=== PATIENT | female | born 1945 | race Caucasian/White ===

== ENCOUNTER 2023-07-21 07:56 | Outpatient (OUT) | payer MEDICARE, SELFPAY ==
--- NOTE | 2023-07-21 08:00 | CA_ITS ---
Patient Name: DAKOTAH CANO MR#: [id number] : 1945 Exam Date: 07/21/2023 Ordering Doctor: DR TODD NGO . ECHOCARDIOGRAM REPORT PROCEDURE: CA ECHO DOPPLER COMPLETE INDICATIONS: Heart murmur, smoker COMPARISON: None. DESCRIPTION: COMPLETE ECHOCARDIOGRAM Real-time transthoracic echocardiography with 2D, M-mode, spectral and color flow Doppler performed. QUALITY: Technical quality was good. 64 , 115#, BSA 1.55, BP 122/80 LEFT VENTRICLE: Normal chamber size. Normal left ventricular wall thickness. Normal systolic function. LV EF: Normal left ventricular ejection fraction, (>55%). DIASTOLIC: Grade 1 diastolic dysfunction. ATRIAL SEPTUM: Visually appears intact. LEFT ATRIUM: Mild chamber dilatation. RIGHT ATRIUM: Normal chamber size. RIGHT VENTRICLE: Normal chamber size. Normal systolic function. TRICUSPID VALVE: Normal mobility and thickness. No stenosis with mild regurgitation. Doppler studies reveal mildly (35-45) elevated right sided pressures. RVSP 40 mmHg MITRAL VALVE: Mildly thickened with normal mobility. No evidence of mitral valve stenosis. Mild mitral annular calcification. Trivial mitral regurgitation. AORTIC VALVE: Normal trileaflet appearance. Mildly calcified aortic valve. Mildly diminished mobility. No evidence of aortic valve stenosis. No aortic regurgitation. AORTIC ROOT: Normal diameter and appearance. PULMONIC VALVE: Normal thickness and mobility. No stenosis. No regurgitation. PERICARDIUM: There is a moderate to large, mostly anterior pericardial effusion. There is inversion of the right atrial free wall which is consistent with elevated intrapericardial pressures. There are some respiratory variations of the mitral and tricuspid inflow that indicate possible early tamponade physiology. IVC: Collapses with inspirations. IVC is normal in size. PLEURA: CONCLUSION: 1. Normal ventricular systolic function. LVEF is estimated at 65%. 2. No significant valvular dysfunction. 3. Mild diastolic dysfunction. 4. Mildly elevated right-sided pressures. 5. Moderate to large mostly anterior pericardial effusion with signs of increased intrapericardial pressure and possible early tamponade physiology. Adult Echocardiography Procedure Report Left Ventricle LVEDD (3.7 - 5.6 cm): 3.80 cm LVESD (2.2 - 4.0 cm): 2.73 cm LVIVS thickness (0.6 - 1.2 cm): 1.04 cm LVPW thickness (0.5 - 1.0 cm): 0.76 cm E - e': 11.80 LVOT Max Gradient: 3.18 mm[Hg], 3.46 mm[Hg] Peak Velocity (LVOT): 0.89 m/s, 0.93 m/s LVOT Diameter 2.11 cm Left Atrium LA Volume Index (2D A2C): 31.94 ml/m2 Left Atrium Systolic Dimension: 2.51 cm Mitral Valve MV E to A Ratio: 0.67 Mitral Valve A-Wave Peak Velocity: 0.81 m/s Mitral Valve E-Wave Peak Velocity: 0.54 m/s Right Ventricle Aorta AO Root Diam: 3.15 cm Aortic Valve AoV Area (Peak Jaspreet): 2.93 cm2, 2.81 cm2 AoV Area (VTI): 3.06 cm2, 2.95 cm2 Peak Velocity(Antegrade Flow): 1.11 m/s Peak Gradient(Antegrade Flow): 4.92 mm[Hg] Mean Velocity(Antegrade Flow): 0.78 m/s Mean Gradient(Antegrade Flow): 2.70 mm[Hg] Velocity Time Integral: 26.15 cm Tricuspid Valve Peak Velocity (Regurgitant Flow): 2.66 m/s, 2.63 m/s, 3.05 m/s Pulmonic Valve Peak Gradient: 4.60 mm[Hg], 3.79 mm[Hg] Right Atrium Right Atrium Systolic Pressure: 21.87 ml, 21.87 ml Dictated by: Ham Bowen M.D. on 07/21/2023 at 15:41 Approved by: Ham Bowen M.D. on 07/21/2023 at 15:54
== END 2023-07-21 07:57 | disposition home or self-care (01) ==
LOC: CARD 07:58
PROVIDERS: PCP Family Medicine; Visit Provider Family Medicine
DX: R01.1 Cardiac murmur, unspecified (principal)
CPT/HCPCS: 93306

== ENCOUNTER 2023-07-24 10:10 | Outpatient (OUT) | payer MEDICARE, SELFPAY ==
[2023-07-24 11:36] LABS: Basophils Percent Auto 0.6 % (0.2-2.0); Eosinophils Absolute Auto 0.1 10^3/uL (0.0-0.7); Eosinophils Percent Auto 0.9 % (0.9-7.0); Hematocrit 41.3 % (36.0-48.0); Hemoglobin 13.4 g/dL (12.0-16.0); Immature Granulocytes Abs Auto 0.01 10^3/uL (0.00-0.03); Immature Granulocytes Pct Auto 0.2 % (0.0-0.5); Lymphocytes Absolute Auto 1.4 10^3/uL (1.2-3.8); Lymphocytes Percent Auto 21.6 % (20.5-60.0); Mean Corpuscular HGB Conc 32.4 g/dL (29.9-35.2); Mean Corpuscular Hemoglobin 31.6 pg (26.7-34.0); Mean Corpuscular Volume 97.4 fL (81.0-99.0); Mean Platelet Volume 11.3 fL (9.5-13.5); Monocytes Absolute Auto 0.6 10^3/uL (0.3-0.8); Monocytes Percent Auto 8.6 % (1.7-12.0); Neutrophils Absolute Auto 4.5 10^3/uL (1.4-6.5); Neutrophils Percent Auto 68.1 % (43.0-75.0); Platelet Count 243 10^3/uL (150-450); Red Blood Count 4.24 10^6/uL (4.20-5.40); Red Cell Distribution Width 14.6 % (11.0-15.0); White Blood Count 6.6 10^3/uL (4.0-11.0)
[2023-07-24 12:25] LABS: Erythrocyte Sedimentation Rate 32 mm/hr (<=30)
[2023-07-24 13:38] LABS: Alanine Aminotransferase 31 U/L (14-59); Albumin Globulin Ratio 0.8; Albumin Level 3.4 g/dL (3.4-5.0); Alkaline Phosphatase 73 U/L (46-116); Anion Gap 12.5; Aspartate Amino Transferase 23 U/L (15-37); BUN Creatinine Ratio 27.1; Bilirubin Total 0.6 mg/dL (0.2-1.0); Calcium 9.5 mg/dL (8.5-10.1); Carbon Dioxide 28.1 mmol/L (21.0-32.0); Chloride 104 mmol/L (98-107); Estimated GFR (African America >60 (>=60); Estimated GFR (Non-African Ame >60 (>=60); Globulin 4.1 g/dL; Glucose 93 mg/dL (74-106); Potassium 3.6 mmol/L (3.5-5.1); Sodium 141 mmol/L (136-145); Total Protein 7.5 g/dL (6.4-8.2)
[2023-07-25 11:11] LABS: C-Reactive Protein, Cardiac 1.02 mg/L (0.00-3.00)
== END 2023-07-24 10:11 | disposition home or self-care (01) ==
LOC: LAB 10:13
PROVIDERS: PCP Family Medicine; Visit Provider Nurse Practitioner
DX: I31.39 Other pericardial effusion (noninflammatory) (principal)
CPT/HCPCS: 36415; 80053; 85025; 85652; 86140

== ENCOUNTER 2024-01-19 12:37 | Inpatient (IN) | payer OTHER, MEDICARE, SELFPAY ==
[2024-01-19] VITALS (59 sets, daily range): BP systolic 76–136; BP diastolic 46–81; PULSE 95–195; TEMP 36.4–36.9; O2SAT 71–100; BMI 19.9; BMI 15.3
--- NOTE | 2024-01-19 12:53 | XR_ITS ---
[address] [address] Patient Name: DAKOTAH CANO MRN: [id number] date: 1945 Sex: F Assigned Patient Location: ED.MAIN Current Patient Location: ER Accession/Order Number: [id number] Exam Date: 01/19/2024 13:42 Report Date: 01/19/2024 14:09 At the request of: JACKI LIANG Procedure: XR chest 1V EXAMINATION: XR chest 1V HISTORY: AMS COMPARISON: No relevant comparison available. FINDINGS: LUNGS: Hyperexpanded lungs with scattered mild interstitial changes, possibly mild infiltrates. Asymmetric greater density filling the right lung apex. VASCULATURE: No increased pulmonary vasculature. PLEURA: No pneumothorax, effusion, or pleural thickening. CARDIAC: Cardiomegaly. Atherosclerotic disease of aortic arch. MEDIASTINUM: No visible mass or adenopathy. BONES: No fracture or visible bone lesion. OTHER: Negative. XR/XR chest 1V IMPRESSION: 1. No convincing acute cardiopulmonary process. 2. Findings favor emphysematous and chronic interstitial changes. Acute infiltrates. Likely. 3. Right apical marked pleural scarring versus mass versus consolidation. Consider follow-up nonemergent CT of chest for further evaluation. 4. Cardiomegaly. Electronically authenticated by: SHELBY EMERY Date: 01/19/2024 14:09
--- NOTE | 2024-01-19 12:53 | ECG_ITS ---
The [facility] Test Date: 2024-01-19 Pat Name: DAKOTAH CANO Department: Room: - Gender: Female Aging Room Operator: : 1945 Requested By: [id number] Order Number: [id number] Reading MD: JENNIFER THAKUR Measurements Intervals [place] Rate: 106 P: 84 ID: 140 QRS: 74 QRSD: 72 T: 76 QT: 318 QTc: 380 Interpretive Statements 1120 Sinus tachycardia 58234 with occasional ventricular premature complexes (Unreliable analysis due to noise) 10093 ST elevation, can't exclude inferolateral injury 6130 Right atrial enlargement 6220 Possible left atrial enlargement 0102 ARTIFACT PRESENT 9150 abnormal ECG Electronically Signed On 01-19-2024 22:41:33 EDT by JENNIFER THAKUR
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
[2024-01-19] MEDS: 0.9 % SODIUM CHLORIDE 1,000 ML 1000 ML IV ×2 (13:14→15:57)
--- NOTE | 2024-01-19 13:16 | ECG_ITS ---
The [facility] Test Date: 2024-01-19 Pat Name: DAKOTAH CANO Department: Room: - Gender: Female Visitor Services Technician: : 1945 Requested By: [id number] Order Number: [id number] Reading MD: JENNIFER THAKUR Measurements Intervals [place] Rate: 178 P: -[id number] PA: -[id number] QRS: 73 QRSD: 100 T: 83 QT: 306 QTc: 400 Interpretive Statements 27077 Atrial fibrillation with rapid ventricular response 3234 Anteroseptal myocardial infarction, age undetermined 9150 abnormal ECG Electronically Signed On 01-19-2024 22:41:57 EDT by JENNIFER THAKUR
[2024-01-19 13:22] LABS: Basophils Percent Auto 0.3 % (0.2-2.0); Hematocrit 41.7 % (36.0-48.0); Hemoglobin 13.7 g/dL (12.0-16.0); Immature Granulocytes Abs Auto 0.08 10^3/uL (0.00-0.03); Immature Granulocytes Pct Auto 0.7 % (0.0-0.5); Lymphocytes Absolute Auto 0.4 10^3/uL (1.2-3.8); Lymphocytes Percent Auto 3.9 % (20.5-60.0); Mean Corpuscular HGB Conc 32.9 g/dL (29.9-35.2); Mean Corpuscular Hemoglobin 32.3 pg (26.7-34.0); Mean Corpuscular Volume 98.3 fL (81.0-99.0); Mean Platelet Volume 11.4 fL (9.5-13.5); Monocytes Absolute Auto 0.6 10^3/uL (0.3-0.8); Monocytes Percent Auto 5.8 % (1.7-12.0); Neutrophils Absolute Auto 9.7 10^3/uL (1.4-6.5); Neutrophils Percent Auto 89.3 % (43.0-75.0); Platelet Count 321 10^3/uL (150-450); Red Blood Count 4.24 10^6/uL (4.20-5.40); White Blood Count 10.9 10^3/uL (4.0-11.0)
[2024-01-19 13:37] LABS: INR 1.25
[2024-01-19 13:39] LABS: Alanine Aminotransferase 121 U/L (14-59); Albumin Globulin Ratio 0.5; Albumin Level 2.4 g/dL (3.4-5.0); Alkaline Phosphatase 109 U/L (46-116); Anion Gap 22.9; Aspartate Amino Transferase 90 U/L (15-37); BUN Creatinine Ratio 38.4; Bilirubin Total 0.7 mg/dL (0.2-1.0); Calcium 9.8 mg/dL (8.5-10.1); Chloride 105 mmol/L (98-107); Estimated GFR (African America 40 (>=60 mL/min/1.73m^2); Estimated GFR (Non-African Ame 33 (>=60 mL/min/1.73m^2); Globulin 4.5 g/dL; Glucose 114 mg/dL (74-106); Potassium 4.9 mmol/L (3.5-5.1); Sodium 140 mmol/L (136-145); Total Protein 6.9 g/dL (6.4-8.2); Troponin I High Sensitivity 23.1 pg/mL (4.0-51.3)
[2024-01-19 13:41] LABS: Ethanol <3 mg/dL; Magnesium 2.6 mg/dL (1.8-2.4)
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
[2024-01-19] MEDS: DILTIAZEM HCL 25 MG/5 ML VIAL 10 MG IV ×2 (14:26→15:37)
[2024-01-19 14:36] LABS: Bilirubin Urine NEGATIVE (NEGATIVE); Blood Urine TRACE-I (NEGATIVE); Color Urine YELLOW (YELLOW); Glucose Urine UA NEGATIVE (NEGATIVE); Ketones Urine 15 mg/dL (NEGATIVE); Leukocyte Esterase Urine SMALL (NEGATIVE); Nitrite Urine NEGATIVE (NEGATIVE); Protein Urine 30 mg/dL (NEG/TRACE); Specific Gravity Urine >=1.030 (1.005-1.025); pH Urine 5.5 (5.0-9.0)
[2024-01-19 14:37] LABS: Urine Microscopic Indicated YES
[2024-01-19] MEDS: dilTIAZem HCL 125 MG in 0.9 % SODIUM CHLORIDE 100 ML IV (14:39)
[2024-01-19 14:49] LABS: Bacteria Urine MODERATE #/HPF (NONE SEEN); Clarity Urine CLOUDY (CLEAR); WBC Urine 20-50 #/HPF (NONE SEEN)
[2024-01-19 14:50] LABS: Cast Seen? SEEN #/LPF (NONE SEEN); Crystals Seen? None Seen #/HPF (None Seen); Hyaline Casts Urine MODERATE; Mucus Urine TRACE (NONE SEEN); Squamous Epithelial Cell Urine FEW #/LPF (NONE/RARE)
[2024-01-19 14:51] LABS: Urine Culture Indicated YES
[2024-01-19 14:53] LABS: Amphetamine Screen Urine NEGATIVE (NEGATIVE); Barbiturates Screen Urine NEGATIVE (NEGATIVE); Benzodiazepines Screen Urine NEGATIVE (NEGATIVE); Buprenorphine Screen Urine NEGATIVE (NEGATIVE); Cannabinoid Screen Urine NEGATIVE (NEGATIVE); Cocaine Screen Urine NEGATIVE (NEGATIVE); Methadone Screen Urine NEGATIVE (NEGATIVE); Methamphetamines Screen Urine NEGATIVE (NEGATIVE); Opiate Screen Urine NEGATIVE (NEGATIVE); Oxycodone Screen Urine NEGATIVE (NEGATIVE); Phencyclidine Screen Urine NEGATIVE (NEGATIVE); Tricyclic Antidepressant Urine NEGATIVE (NEGATIVE)
[2024-01-19 15:09] LABS: TSH W/ REFLEX FT4 1.653 uIU/mL (0.358-3.740)
--- NOTE | 2024-01-19 15:11 | PC.NURSE ---
Phone report given to NUNO Underwood, in ICU before pt comes up.
[2024-01-19] MEDS: CEFTRIAXONE 1,000 MG in 0.9 % SODIUM CHLORIDE 50 ML 100 MG IV (16:00)
--- NOTE | 2024-01-19 16:42 | PM.HP ---
HPI H&P: HPI History of Present Illness Chief complaint: GENERAL WEAKNESS, AMS, A-Fib with RVR Narrative: Patient brought over to ED by EMS for altered mental status and rapid HR. Patient was driving erratically when she was stopped over by the police. She told the police that she was just upset at her so. She seemed confused, and disheveled. Patient has no known hx of Afib and was found to have Afib with RVR. She received IV cardizem bolus in ED and started on cardizem drip. Trauma work up - CTH/CT neck did not reveal any sig finding/injury. Upon my evaluation, patient was calm and comfortable. She was oriented to time/place and person but had poor insight and did make much sense when I tried to converse with her. Her son who lives with her reports that she has not been eating/drinking for 2-3 days and that she has been more confused/weak than her baseline. Patient also reported multiple falls at home but could not give me more information about her falls. She denies any pain currently and appeared comfortable. Opioid HPI Opioid Management Most Recent Pain and Opioid Data: Ur Phencyclidine Scrn Negative (NEGATIVE) 01/19/24 14:07 Review of Systems ROS Narrative Limited ROS due to patient's mental status. [facility] Social History (Updated 01/19/24 @ 16:49 by Shaikh Finn MD) Within the past year, how often did you have a drink containing alcohol: never Score interpretation: A score less than 3 is consistent with normal alcohol consumption. Smoking status: Current every day smoker Non-prescribed substance use: denies use Meds Home Medications and Allergies Allergies Allergy/AdvReac Type Severity Reaction Status Date / Time No Known Drug Allergies Allergy Verified 01/19/24 12:50 Exam Constitutional Vital Signs, click to edit/add: Last Vital Signs Temp 98.5 F 01/19/24 12:41 Pulse 148 H 01/19/24 15:50 Resp 16 01/19/24 15:50 BP 136/69 01/19/24 15:45 Pulse Ox 99 01/19/24 15:01 O2 Del Method Room Air 01/19/24 12:41 Common normals: no apparent distress General appearance: comfortable, disheveled, ill appearing and frail appearing Nutritional appearance: cachectic HENMT Other: Bruise noted over right fronto temporal area. Respiratory Common normals: normal respiratory effort, no use of accessory muscles and clear to auscultation bilaterally Effort & inspection: able to speak in complete sentences Cardio Common normals: S1 normal heart sound and S2 normal heart sound Rate: tachycardic Rhythm: abnormal rhythm Extremity Common normals: normal to inspection and full ROM Neuro Common normals: oriented x3 and moves all extremities Speech: speech normal Gait (neuro): unable to assess gait Other: AAOX 3 but confused speech, poor insight, does appear to have good grasp of why she is in ED. Psych Common normals: denies hallucinations and denies homicidal ideation Appearance: disheveled Attitude: uncooperative and guarded Speech: normal speech Thought process: disorganized and confused Results Labs Labs: Short CBC 01/19/24 Range/Units 13:15 WBC 10.9 (4.0-11.0) 10^3/uL Hgb 13.7 (12.0-16.0) g/dL Hct 41.7 (36.0-48.0) % Plt Count 321 (150-450) 10^3/uL BMP 01/19/24 13:15 Sodium 140 Potassium 4.9 Chloride 105 Carbon Dioxide 17.0 L BUN 58.0 H Creatinine 1.51 H Glucose 114 H Calcium 9.8 Liver Function 01/19/24 Range/Units 13:15 Total Bilirubin 0.7 (0.2-1.0) mg/dL AST 90 H (15-37) U/L ALT 121 H (14-59) U/L Alkaline Phosphatase 109 (46-116) U/L Albumin 2.4 L (3.4-5.0) g/dL Urine 01/19/24 Range/Units 14:07 Urine Color Yellow (YELLOW) Urine Clarity Cloudy A (CLEAR) Urine pH 5.5 (5.0-9.0) Ur Specific Spencer >=1.030 A (1.005-1.025) Urine Protein 30 A (NEG/TRACE) mg/dL Urine Glucose (UA) Negative (NEGATIVE) mg/dL Assessment and Plan Assessment and Plan (1) Atrial fibrillation with RVR: Assessment and Plan: New onset Afib. Started on IV cardizem drip. Added PO Lopressor and IV digoxin. Therapeutic Lovenox for stroke px. Wean off Cardizem as her HR improves gradually. No need for ECHO as recently done in 08/04 TSH - normal, potassium/magnesium normal (2) Altered mental status: Assessment and Plan: No acute finding on CTH. Suspect underlying mental health illness/undiagnosed dementia. Patient not at her baseline mental status, as per her son - she is more weak/confused and not making much sense. Likely due to UTI. On IV rocephin. UDS /ethanol levels - negative. Qualifiers: Altered mental status type: disorientation Qualified Code(s): R41.0 - Disorientation, unspecified (3) UTI (urinary tract infection): Assessment and Plan: Abnormal UA with confusion. On IV rocephin. F/u urine cx. Qualifiers: Urinary tract infection type: acute cystitis Hematuria presence: without hematuria Qualified Code(s): N30.00 - Acute cystitis without hematuria (4) Severe malnutrition: Assessment and Plan: BMI of only 19, appears cachectic with muscle wasting, loss of subcutaneous tissue. Poor PO intake as per son for few days but it seems like she is not getting adequate nutrition for sometime. Dieitician consult. (5) Abnormal chest xray: Assessment and Plan: Possible lung mass, interstitial changes, old scarring. Current smoker. Ordered CT chest for better visualization of lung parenchyma Urinary Catheter Management Urinary Catheter Management Straight: Cath placed during this visit: yes Urethral indwelling: Yes Reason for continuing: measure accurate output Insertion date: 01/19/24 Insertion time: 14:22
--- NOTE | 2024-01-19 16:59 | CT_ITS ---
The [address] [address] Patient Name: DAKOTAH CANO MRN: [id number] date: 1945 Sex: F Assigned Patient Location: ICU Current Patient Location: ICU Accession/Order Number: [id number] Exam Date: 01/19/2024 17:28 Report Date: 01/19/2024 18:56 At the request of: SHAIKH OMAR Procedure: CT chest wo con EXAMINATION: CT chest wo con, 01/19/2024 5:28 PM EDT HISTORY: Abnormal CXR COMPARISON: XR chest 1V Date 01/19/2024 TECHNIQUE: CT scan of the chest was performed without IV contrast. CT dose reduction technique was used, including Automated Exposure Control. FINDINGS: Moderate cardiomegaly seen. Large predominantly posterior pericardial effusion is seen. Coronary arterial calcification is seen. The thoracic aorta is normal in course and caliber. There is no evidence for thoracic aortic aneurysm. Thoracic aortic calcification is seen. Approximately 4.5 x 2.5 cm fluid density is seen anterior to the ascending aorta, in the anterior mediastinum, which appearance can be seen with benign mediastinal cystic structure. Diffuse emphysematous changes are seen. Right apical pleural thickening is seen with large right apical mass measuring approximately 5.5 x 2.2 cm, which demonstrates significantly irregular borders, suspicious for malignancy. Multiple additional smaller nodules are seen in the lungs bilaterally, measuring up to 2 cm and the right lung, as seen in the more inferior right upper lobe, and up to 15 mm in the left lung, as seen along the left major fissure. There is no evidence for pleural effusion or pneumothorax. Multiple small paratracheal and Suspicious lymph nodes are seen which measure up to 1 cm. Multiple right axillary lymph nodes are also seen, which measure up to 15 mm. The visualized upper abdomen appears grossly unremarkable. Mild diffuse bony demineralization is seen. No destructive osseous lesion is seen. CT/CT chest wo con IMPRESSION: Diffuse emphysematous changes are seen. Right apical pleural thickening is seen with large right apical mass measuring approximately 5.5 x 2.2 cm, which demonstrates significantly irregular borders, suspicious for malignancy. Multiple additional smaller nodules are seen in the lungs bilaterally, measuring up to 2 cm and the right lung, as seen in the more inferior right upper lobe, and up to 15 mm in the left lung, as seen along the left major fissure. Moderate cardiomegaly seen. Large predominantly posterior pericardial effusion is seen. Coronary arterial calcification is seen. Approximately 4.5 x 2.5 cm fluid density is seen anterior to the ascending aorta, in the anterior mediastinum, which appearance can be seen with benign mediastinal cystic structure. Electronically authenticated by: MARBIN DAWKINS Date: 01/19/2024 18:56
[2024-01-19] MEDS: DIGOXIN 500 MCG/2 ML AMPUL 125 MCG IV (18:04)
[2024-01-19] MEDS: ENOXAPARIN SODIUM 60 MG/0.6 ML SYRINGE 50 MG SUBQ (18:04)
[2024-01-19] MEDS: METOPROLOL TARTRATE 25 MG TABLET PO (18:05)
[2024-01-19] MEDS: LACTATED RINGER'S SOLUTION 1,000 ML 125 ML IV (18:06)
[2024-01-19] MEDS: OXYCODONE HCL 5 MG TABLET PO (23:06)
[2024-01-20] VITALS (35 sets, daily range): BP systolic 107–128; BP diastolic 57–90; PULSE 78–135; TEMP 36.3–36.8; O2SAT 85–100
[2024-01-20] MEDS: DIGOXIN 500 MCG/2 ML AMPUL 125 MCG IV ×2 (01:56→09:00)
[2024-01-20] MEDS: LACTATED RINGER'S SOLUTION 1,000 ML 125 ML IV ×3 (01:58→17:13)
[2024-01-20 05:46] LABS: Basophils Percent Auto 0.1 % (0.2-2.0); Hematocrit 37.2 % (36.0-48.0); Hemoglobin 12.3 g/dL (12.0-16.0); Immature Granulocytes Abs Auto 0.09 10^3/uL (0.00-0.03); Immature Granulocytes Pct Auto 0.8 % (0.0-0.5); Lymphocytes Absolute Auto 0.7 10^3/uL (1.2-3.8); Lymphocytes Percent Auto 5.9 % (20.5-60.0); Mean Corpuscular HGB Conc 33.1 g/dL (29.9-35.2); Mean Corpuscular Volume 96.9 fL (81.0-99.0); Mean Platelet Volume 11.9 fL (9.5-13.5); Monocytes Absolute Auto 1.2 10^3/uL (0.3-0.8); Monocytes Percent Auto 10.4 % (1.7-12.0); Neutrophils Absolute Auto 9.3 10^3/uL (1.4-6.5); Neutrophils Percent Auto 82.8 % (43.0-75.0); Platelet Count 283 10^3/uL (150-450); Red Blood Count 3.84 10^6/uL (4.20-5.40); Red Cell Distribution Width 14.8 % (11.0-15.0); White Blood Count 11.2 10^3/uL (4.0-11.0)
[2024-01-20 06:05] LABS: Alanine Aminotransferase 121 U/L (14-59); Albumin Globulin Ratio 0.5; Alkaline Phosphatase 103 U/L (46-116); Anion Gap 17.6; Aspartate Amino Transferase 78 U/L (15-37); BUN Creatinine Ratio 47.9; Bilirubin Total 0.5 mg/dL (0.2-1.0); Calcium 8.9 mg/dL (8.5-10.1); Carbon Dioxide 19.4 mmol/L (21.0-32.0); Chloride 106 mmol/L (98-107); Estimated GFR (African America >60 (>=60 mL/min/1.73m^2); Estimated GFR (Non-African Ame 56 (>=60 mL/min/1.73m^2); Globulin 3.9 g/dL; Glucose 79 mg/dL (74-106); Sodium 139 mmol/L (136-145); Total Protein 5.9 g/dL (6.4-8.2)
[2024-01-20] MEDS: METOPROLOL TARTRATE 50 MG TABLET PO ×2 (08:58→21:00)
--- NOTE | 2024-01-20 09:19 | CM.NOTE ---
Rounds made with Dr. Briseno, discussed with pt about CT scan findings and possible dx of lung cancer. Talked with pt also regarding elevated HR and need for cardiac echo. Pt voices she wants to go home today. Dr. Briseno discussed with pt risks of signing out AMA and possible if underlying conditions gone untreated. Pt voices she will stay, Dr. Briseno will update pt's son on findings and no discharge today.
--- NOTE | 2024-01-20 09:23 | CA_ITS ---
Patient Name: DAKOTAH CANO MR#: [id number] : 1945 Exam Date: 01/20/2024 Ordering Doctor: Shaikh Tracy Briseno . ECHOCARDIOGRAM REPORT PROCEDURE: CA ECHO DOPPLER COMPLETE INDICATIONS: Pericardial effusion/tamponade physiology COMPARISON: None. DESCRIPTION: COMPLETE ECHOCARDIOGRAM Real-time transthoracic echocardiography with 2D, M-mode, spectral and color flow Doppler performed. QUALITY: Technical quality was good. LEFT VENTRICLE: Normal chamber size. Mild concentric left ventricular hypertrophy. LV EF: Global left ventricular systolic function is hyperdynamic; visually estimated ejection fraction is 65 to 70%. No regional wall motion abnormalities. DIASTOLIC: Unable to assess diastolic function. ATRIAL SEPTUM: Inadequately seen LEFT ATRIUM: Severe dilatation. RIGHT ATRIUM: Mild dilatation. RIGHT VENTRICLE: Normal chamber size. Normal right ventricular systolic function. TRICUSPID VALVE: Normal mobility and thickness. Moderate regurgitation. Mild pulmonary hypertension. RVSP 44mmHg MITRAL VALVE: Mildly thickened with normal mobility. No evidence of mitral valve stenosis. Mild mitral annular calcification. Mild mitral regurgitation. AORTIC VALVE: Normal trileaflet appearance. Mildly calcified aortic valve. Normal leaflet mobility. No evidence of aortic valve stenosis. AORTIC ROOT: Normal diameter and appearance. PULMONIC VALVE: Normal thickness and mobility. No stenosis. Trivial regurgitation. PERICARDIUM: Large, circumferential pericardial effusion that appears increased in size from previous exam of 07/21/23, measuring 4.0cm at its largest diameter. No significant respiratory variations of the mitral and tricuspid inflows. No convincing signs of chamber compression. IVC: Normal size with no collapse. CONCLUSION: 1. Global left ventricular systolic function is hyperdynamic; visually estimated ejection fraction is 65 to 70% 2. Normal right ventricular size and systolic function 3. Biatrial dilatation 4. Mild increased left ventricular wall thickness 5. Moderate tricuspid regurgitation 6. Mildly elevated right ventricular systolic pressure; RVSP 44 mmHg 7. Mild mitral regurgitation 8. There is a large, circumferential pericardial effusion that appears increased in size from prior study; no convincing signs of chamber compression or Doppler evidence of tamponade physiology - clinical correlation is recommended Adult Echocardiography Procedure Report Left Ventricle LVEDD (3.7 - 5.6 cm): 3.05 cm LVESD (2.2 - 4.0 cm): 2.32 cm LVIVS thickness (0.6 - 1.2 cm): 1.25 cm LVPW thickness (0.5 - 1.0 cm): 1.13 cm LVOT Max Gradient: 1.64 mm[Hg] LVOT Area (cm2): 0.64 m/s Peak Velocity (LVOT): 0.64 m/s Mean Velocity (LVOT): 0.46 m/s LVOT Diameter 1.77 cm Left Ventricular Ejection Fraction: 73.22 % Left Atrium LA Volume Index (2D A2C): 54.73 ml/m2 Left Atrium Systolic Dimension: 3.65 cm Mitral Valve Mitral Valve E-Wave Peak Velocity: 0.81 m/s Right Ventricle RV Internal Diastolic Dimension: 2.80 cm Aorta AO Root Diam: 2.72 cm Ascending Ao Diam: 2.28 cm Aortic Valve AoV Area (Peak Jaspreet): 1.22 cm2, 1.22 cm2 AoV Area (VTI): 1.59 cm2, 1.59 cm2 Peak Velocity(Antegrade Flow): 1.30 m/s Peak Gradient(Antegrade Flow): 6.75 mm[Hg] Mean Velocity(Antegrade Flow): 0.84 m/s Mean Gradient(Antegrade Flow): 3.26 mm[Hg] Velocity Time Integral: 21.99 cm Tricuspid Valve Peak Velocity (Regurgitant Flow): 2.73 m/s, 2.70 m/s, 3.01 m/s, 2.14 m/s, 2.33 m/s Pulmonic Valve Mean Gradient: 2.11 mm[Hg], 2.31 mm[Hg], 1.31 mm[Hg] Mean Velocity: 0.68 m/s, 0.74 m/s, 0.54 m/s Peak Velocity: 0.89 m/s Peak Gradient: 3.84 mm[Hg], 3.51 mm[Hg], 2.21 mm[Hg] Right Atrium Right Atrium Systolic Pressure: 52.88 ml, 52.88 ml Dictated by: Drew Parker M.D. on 01/20/2024 at 15:57 Approved by: Drew Parker M.D. on 01/20/2024 at 16:07
--- NOTE | 2024-01-20 09:31 | PM.IMPN1 ---
Progress Note: A&P Assessment and Plan (1) Atrial fibrillation with RVR: Assessment and Plan: Poorly controlled HR while on cardizem drip. Patient also on IV digoxin. Increase Lopressor to 50 Q12. Was hypotensive in ED with BP in the 80s. Improved now and stable. (2) Altered mental status: Assessment and Plan: Due to UTI. Improved. Still not at her baseline. C/w Rocephin Qualifiers: Altered mental status type: disorientation Qualified Code(s): R41.0 - Disorientation, unspecified (3) UTI (urinary tract infection): Assessment and Plan: F/u urine cx. On IV rocephin Qualifiers: Urinary tract infection type: acute cystitis Hematuria presence: without hematuria Qualified Code(s): N30.00 - Acute cystitis without hematuria (4) Severe malnutrition: Assessment and Plan: Suspect underlying metastatic lung cancer. No pathological diagnosis and previously unknown. Discussed separately. Added ensure/prostat. BMI of only 15, severe muscle wasting/cachexia noted. (5) Lung mass: Assessment and Plan: Apical lung mass, highly suspicious for lung cancer. D/w patient. these findings were also discussed with her son who is her poa (6) Pericardial effusion: Assessment and Plan: Large pericardial effusion noted on CT and ECHO in 08/04 Avoid diuresis. Early tamponade physiology on ECHO in 08/04. Repeat ECHO. Son told me that patient refused to have pericardiocentesis as outpatient. (7) HAMMAD (acute kidney injury): Assessment and Plan: presented with cr of 1.5, normal renal function at baseline. resolved with iv hydration Plan Patient changed to inpatient as she was hypotensive with Afib with RVR, her HR is still poorly controlled while on cardizem drip after initial period of observation and treatment. She also has pericardial effusion associated with Lung mass and early tamponade physiology based on previous ECHO. She needs close hemodynamic monitoring, cardiology evaluation and is at high risk of poor prognosis, clinical outcome if not treated appropriately and promptly. Internal Medicine - PN: Subj Subjective Interval history: Seen and examined. Patient was hypotensive overnight with BP in the 80s. Now better. However, his HR is still poorly controlled and on average >130. Asymptomatic. Looks more awake and alert and not as confused as she was yesterday Exam Constitutional Vital Signs, click to edit/add: Last Vital Signs Temp 97.7 F 01/19/24 23:40 Pulse 135 H 01/20/24 09:00 Resp 25 H 01/20/24 09:00 BP 128/90 01/20/24 07:59 Pulse Ox 96 01/20/24 08:50 O2 Del Method Room Air 01/20/24 03:07 Common normals: no apparent distress General appearance: comfortable, disheveled and frail appearing Nutritional appearance: cachectic HENMT Other: Bruise noted over right fronto temporal area. Respiratory Common normals: normal respiratory effort, no use of accessory muscles and clear to auscultation bilaterally Effort & inspection: able to speak in complete sentences Cardio Common normals: S1 normal heart sound and S2 normal heart sound Rate: tachycardic Rhythm: abnormal rhythm Extremity Common normals: normal to inspection and full ROM Neuro Common normals: oriented x3, moves all extremities and no focal motor deficits Speech: speech normal Gait (neuro): unable to assess gait Other: AAOX 3 Poor insight. But not as confused as she was before. Psych Common normals: denies hallucinations and denies homicidal ideation Appearance: disheveled Attitude: guarded Speech: normal speech Insight: poor Internal Medicine - PN: Obj Da Labs Labs: Laboratory Results - last 24 hr 01/19/24 01/19/24 01/20/24 13:15 14:07 05:34 WBC 10.9 11.2 H RBC 4.24 3.84 L Hgb 13.7 12.3 Hct 41.7 37.2 MCV 98.3 96.9 MCH 32.3 32.0 MCHC 32.9 33.1 RDW 15.0 14.8 Plt Count 321 283 MPV 11.4 11.9 Neut % (Auto) 89.3 H 82.8 H Lymph % (Auto) 3.9 L 5.9 L Collier % (Auto) 5.8 10.4 Eos % (Auto) 0.0 L 0.0 L Baso % (Auto) 0.3 0.1 L Neut # (Auto) 9.7 H 9.3 H Lymph # (Auto) 0.4 L 0.7 L Collier # (Auto) 0.6 1.2 H Eos # (Auto) 0.0 0.0 Baso # (Auto) 0.0 0.0 Abs Immat Gran (auto) 0.08 H 0.09 H Imm/Tot Granulo (auto) 0.7 H 0.8 H PT 13.0 H INR 1.25 APTT 26.0 Sodium 140 139 Potassium 4.9 4.0 Chloride 105 106 Carbon Dioxide 17.0 L 19.4 L Anion Gap 22.9 17.6 BUN 58.0 H 46.0 H Creatinine 1.51 H 0.96 Est GFR ( Amer) 40 L >60 Est GFR (Non-Af Amer) 33 L 56 L BUN/Creatinine Ratio 38.4 47.9 Glucose 114 H 79 Calcium 9.8 8.9 Magnesium 2.6 H Total Bilirubin 0.7 0.5 AST 90 H 78 H ALT 121 H 121 H Alkaline Phosphatase 109 103 Troponin I High Sens 23.1 Total Protein 6.9 5.9 L Albumin 2.4 L 2.0 L Globulin 4.5 3.9 Albumin/Globulin Ratio 0.5 0.5 TSH & Free T4 Interp 1.653 Urine Color Yellow Urine Clarity Cloudy A Urine pH 5.5 Ur Specific [place] >=1.030 A Urine Protein 30 A Urine Glucose (UA) Negative Urine Ketones 15 A Urine Occult Blood Trace-i Urine Nitrite Negative Urine Bilirubin Negative Urine Urobilinogen 1.0 Ur Leukocyte Esterase Small A Urine RBC 2-5 A Urine WBC 20-50 A Ur Squamous Epith Cells Few A Urine Crystals None seen Urine Bacteria Moderate A Urine Casts Seen A Hyaline Casts Moderate Urine Mucus Trace A Ur Culture Indicated? Yes Urine Opiates Screen Negative Ur Buprenorphine Scrn Negative Ur Oxycodone Screen Negative Urine Methadone Screen Negative Ur Barbiturates Screen Negative U Tricyclic Antidepress Negative Ur Phencyclidine Scrn Negative Ur Amphetamines Screen Negative U Methamphetamines Scrn Negative U Benzodiazepines Scrn Negative Urine Cocaine Screen Negative U Cannabinoids Screen Negative Ethanol Quant <3 Urinary Catheter Management Urinary Catheter Management Straight: Cath placed during this visit: yes Urethral indwelling: Yes Reason for continuing: measure accurate output Insertion date: 01/19/24 Insertion time: 14:22
[2024-01-20] MEDS: dilTIAZem HCL 125 MG in 0.9 % SODIUM CHLORIDE 100 ML 10 MG IV (10:40)
--- NOTE | 2024-01-20 12:13 | SWNOTE1 ---
Pt has confusion. SW did see that OT recommended HH. SW called pt's son, Wilfredo, and left a message. Pt is still driving.
--- NOTE | 2024-01-20 13:43 | SWNOTE1 ---
Pt's son Wilfredo called SW back. SW completed assessment with him. Pt lives at home by herself in an apartment. Pt's son lives about 10 minutes away. Pt does not use any DME at home. Pt's son stated he is going to taker her keys no matter what.
--- NOTE | 2024-01-20 13:47 | SWNOTE1 ---
Continued from previous note: SW spoke with pt's son about the possibility of having home health come in for a short time to assess her, therapy and nurse. Pt's son does feel this would be a good idea. He does not have a preference on the company at this time and is alright with SW picking one. SW to send referral to home [facility].
--- NOTE | 2024-01-20 13:49 | SWNOTE1 ---
SW called [facility] (since they have hospice services as well if ever needed), but they are not in network. SW to send referral to [facility] since they have new hospice services that should be starting soon. Referral sent to [facility]. Referral included face sheet, ED note, H&P, provider notes, case management report, and PT/OT notes.
--- NOTE | 2024-01-20 13:55 | SWNOTE1 ---
Important Message from [employer] reviewed and discussed with patient's son Wilfredo Croft over the phone. Pt. verbalized understanding and had no further questions. packing line worker signed with permission from son, Wilfredo. Original place in pt's room and copy placed in patient?s chart.
--- NOTE | 2024-01-20 14:39 | SWNOTE1 ---
SW received call from [facility] and they are not able to accept. SW to send referral to [address]
--- NOTE | 2024-01-20 15:08 | SWNOTE1 ---
[facility] has accepted patient.
--- NOTE | 2024-01-20 15:11 | SWNOTE1 ---
[facility] also stated they will start care on ThursdayJan 21 if pt discharges tomorrow, if no discharge tomorrow SW to call [facility].
[2024-01-20] MEDS: CEFTRIAXONE 1,000 MG in 0.9 % SODIUM CHLORIDE 50 ML 100 MG IV (16:05)
[2024-01-20] MEDS: ENOXAPARIN SODIUM 60 MG/0.6 ML SYRINGE 50 MG SUBQ (17:13)
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
[2024-01-20] MEDS: PROSTAT 15 GM PROTEIN/100 CAL 30 ML LIQUID PACKET PO (20:25)
[2024-01-20] MEDS: OXYCODONE HCL 5 MG TABLET PO (21:00)
--- NOTE | 2024-01-20 22:18 | RESP.RT ---
Sp02 on room air 85%, placed pt on 3L nasal cannula and Spo2 increased to 91%.
[2024-01-21] VITALS (58 sets, daily range): BP systolic 109–140; BP diastolic 64–89; PULSE 53–140; TEMP 36.3–37.1; O2SAT 90–95; BMI 15.3
[2024-01-21] MEDS: LACTATED RINGER'S SOLUTION 1,000 ML 125 ML IV ×2 (00:45→09:28)
[2024-01-21 06:27] LABS: Alanine Aminotransferase 107 U/L (14-59); Albumin Globulin Ratio 0.5; Albumin Level 1.8 g/dL (3.4-5.0); Alkaline Phosphatase 112 U/L (46-116); Anion Gap 14.2; Aspartate Amino Transferase 57 U/L (15-37); BUN Creatinine Ratio 37.1; Bilirubin Total 0.4 mg/dL (0.2-1.0); Calcium 8.8 mg/dL (8.5-10.1); Carbon Dioxide 20.6 mmol/L (21.0-32.0); Chloride 105 mmol/L (98-107); Estimated GFR (African America >60 (>=60 mL/min/1.73m^2); Estimated GFR (Non-African Ame >60 (>=60 mL/min/1.73m^2); Glucose 85 mg/dL (74-106); Potassium 3.8 mmol/L (3.5-5.1); Sodium 136 mmol/L (136-145); Total Protein 5.8 g/dL (6.4-8.2)
[2024-01-21 06:28] LABS: Hematocrit 37.2 % (36.0-48.0); Hemoglobin 12.4 g/dL (12.0-16.0); Mean Corpuscular HGB Conc 33.3 g/dL (29.9-35.2); Mean Corpuscular Hemoglobin 32.1 pg (26.7-34.0); Mean Corpuscular Volume 96.4 fL (81.0-99.0); Mean Platelet Volume 11.1 fL (9.5-13.5); Platelet Count 270 10^3/uL (150-450); Red Blood Count 3.86 10^6/uL (4.20-5.40); White Blood Count 9.2 10^3/uL (4.0-11.0)
[2024-01-21 06:29] LABS: Atypical Lymphocytes Abs Man 0.18; Hypochromasia 3+; Lymphocytes Absolute Manual 0.27 10^3/uL (1.20-3.80); Monocytes Absolute Manual 0.64 10^3/uL (0.30-0.80); Segmented Neut Absolute Manual 8.09 10^3/uL (1.4-6.5)
[2024-01-21] MEDS: METOPROLOL TARTRATE 50 MG TABLET PO ×2 (08:01→10:55)
--- NOTE | 2024-01-21 10:04 | CM.NOTE ---
Rounds made with Dr. Briseno. Dr. Briseno discussed cardiology's recommendation of being transferred for treatment of pericardial effusion. Victoria was refusing to be transferred. Dr Briseno discussed the potential for if pericardial effusion is not treated. Dr. Briseno also discussed code status with patient and if wanted CPR or intubated if necessary. Dr. Briseno asked Victoria to explain to him what she had just been told by him. Victoria had difficulty putting into words what Dr. Briseno discussed and Dr Briseno was not certain she was fully comprehending what he was saying. Dr Briseno decided he would discuss situation further with the son who is POA. Dr. Briseno spoke to son, Wilfredo and decision was made to get a Hospice consult. Potential for discharge after hospice consult.
--- NOTE | 2024-01-21 10:25 | SWNOTE1 ---
SW spoke to case management and doctor spoke to the son and they would like to pursue hospice. SW called the son, Shade, and he would like to use [facility]. SW to send referral.
--- NOTE | 2024-01-21 10:41 | SWNOTE1 ---
Referral sent to [facility]. Referral included face sheet, ED note, H&P, provider notes, case management report, wound consult, nursing notes, diagnostic imaging, med list, DNR Oorder, and Hospice order.
--- NOTE | 2024-01-21 13:11 | SWNOTE1 ---
SW called [facility] intake. They stated there coorinator spoke to son and he wanted them to call back around 3:30/4. SW expressed to intake that we need someone to come and assess pt as she is being discharged today and then they can coordinate with son after the assessment. Lucinda in intake stated she will reach out and call me back with time.
--- NOTE | 2024-01-21 14:49 | PC.NURSE ---
report called to [facility] on [facility]. pt transported to [facility] with belongings.
--- NOTE | 2024-01-21 15:35 | SWNOTE1 ---
ERNESTO was able to speak to Amira from [facility] and they will be coming to the hospital around 5-5:30 to complete assessment. ERNESTO did advise [facility] that pt will potentially still be discharged after. ERNESTO called pt's son Shade to confirm he will be here while Hospice is here and he stated yes. ERNESTO also advised son that pt may still be discharged this evening, he voiced understanding. ERNESTO updated nurse and Dr. Briseno. ERNESTO left packet of information at med/surge desk for [facility].
[2024-01-21] MEDS: CEFTRIAXONE 1,000 MG in 0.9 % SODIUM CHLORIDE 50 ML 100 MG IV (16:38)
--- NOTE | 2024-01-21 17:52 | PM.IMPN1 ---
Progress Note: A&P Assessment and Plan (1) Atrial fibrillation with RVR: Assessment and Plan: Off of Cardizem drip. Increased Lopressor to 100 q12. Stop Lovenox as patient is now enrolled in hospice. (2) Altered mental status: Assessment and Plan: Due to UTI. Improved. Still not at her baseline. C/w Rocephin Qualifiers: Altered mental status type: disorientation Qualified Code(s): R41.0 - Disorientation, unspecified (3) UTI (urinary tract infection): Assessment and Plan: F/u urine cx. On IV rocephin Qualifiers: Hematuria presence: without hematuria Urinary tract infection type: acute cystitis Qualified Code(s): N30.00 - Acute cystitis without hematuria (4) Severe malnutrition: Assessment and Plan: Suspect underlying metastatic lung cancer vs relapse of B cell lymphoma. Added ensure/prostat. BMI of only 15, severe muscle wasting/cachexia noted. (5) Lung mass: Assessment and Plan: Apical lung mass, highly suspicious for lung cancer vs b cell lymphoma. D/w patient. these findings were also discussed with her son who is her POA (6) Pericardial effusion: Assessment and Plan: Large pericardial effusion noted on CT and ECHO in 08/04 Avoid diuresis. Early tamponade physiology on ECHO in 08/04. Repeat ECHO - shows increase in the size of pericardial effusion Son told me that patient refused to have pericardiocentesis as outpatient. Patient is refusing to have any invasive procedures. (7) HAMMAD (acute kidney injury): Assessment and Plan: presented with cr of 1.5, normal renal function at baseline. resolved with iv hydration Internal Medicine - PN: Subj Subjective Interval history: Seen and examined. Off of Cardizem drip. HR is poorly controlled and persistently above 120. Exam Constitutional Vital Signs, click to edit/add: Last Vital Signs Temp 97.4 F L 01/21/24 15:30 Pulse 126 H 01/21/24 15:51 Resp 15 01/21/24 14:08 BP 140/79 01/21/24 15:30 Pulse Ox 92 L 01/21/24 15:30 O2 Del Method Room Air 01/21/24 15:30 O2 Flow Rate 3 01/21/24 04:30 Common normals: no apparent distress General appearance: comfortable, disheveled and frail appearing Nutritional appearance: cachectic HENMT Other: Bruise noted over right fronto temporal area. Respiratory Common normals: normal respiratory effort, no use of accessory muscles and clear to auscultation bilaterally Effort & inspection: able to speak in complete sentences Cardio Common normals: S1 normal heart sound and S2 normal heart sound Rate: tachycardic Rhythm: abnormal rhythm Extremity Common normals: normal to inspection and full ROM Neuro Common normals: oriented x3, moves all extremities and no focal motor deficits Speech: speech normal Gait (neuro): unable to assess gait Other: AAOX 3 Poor insight. Patient has poor understanding of her medical condition. She does not seem to have medical competency in my opinion as she was unable to communicate/grasp the basic concepts of her current illness. Psych Common normals: denies hallucinations and denies homicidal ideation Appearance: disheveled Attitude: guarded Speech: normal speech Insight: poor Judgement: poor Internal Medicine - PN: Obj Da Labs Labs: Laboratory Results - last 24 hr 01/21/24 05:29 WBC 9.2 RBC 3.86 L Hgb 12.4 Hct 37.2 MCV 96.4 MCH 32.1 MCHC 33.3 RDW 15.0 Plt Count 270 MPV 11.1 Seg Neuts % (Manual) 88.0 H Lymphocytes % (Manual) 3.0 L Atypical Lymphs % (Man) 2.0 Monocytes % (Manual) 7.0 Eosinophils % (Manual) 0.0 L Basophils % (Manual) 0.0 L Neutrophils # (Manual) 8.09 H Lymphocytes # (Manual) 0.27 L Abs Atypical Lymphs Man 0.18 Monocytes # (Manual) 0.64 Eosinophils # (Manual) 0.00 Basophils # (Manual) 0.00 Hypochromasia 3+ Sodium 136 Potassium 3.8 Chloride 105 Carbon Dioxide 20.6 L Anion Gap 14.2 BUN 26.0 H Creatinine 0.70 Est GFR ( Amer) >60 Est GFR (Non-Af Amer) >60 BUN/Creatinine Ratio 37.1 Glucose 85 Calcium 8.8 Total Bilirubin 0.4 AST 57 H ALT 107 H Alkaline Phosphatase 112 Total Protein 5.8 L Albumin 1.8 L Globulin 4.0 Albumin/Globulin Ratio 0.5 Urinary Catheter Management Urinary Catheter Management Straight: Cath placed during this visit: yes Urethral indwelling: Yes Reason for continuing: not indwelling catheter Insertion date: 01/19/24 Insertion time: 14:22
--- NOTE | 2024-01-21 17:52 | W.ACP ---
Advance Care Planning Advance Care Planning Discussion Does patient have a terminal or chronic,progressive disease such that prognosis is less than 6 months: Yes Advance care planning discussion participants: patient and patient surrogate decision maker (Son) Advance care planning discussion summary: 78 y o female who presented with Afib with RVR, metabolic encephalopathy sec to UTI has metastatic malignancy likely lung cancer vs B cell lymphoma with large pericardial effusion. Patient has poor insight, she is confused and in my opinion she does not have the capacity to make informed decisions. She did however, told me that she did not want CPR and that she does not want any invasive procedures. I spoke with her son on 2 occasions via phone. Explained the current medical condition of his mom, her prognosis, and that without treatment of pericardial effusion, metastatic cancer, she is not expected to have life expectancy beyond 6 months. When inquired about her wishes, he told me that she did not want to have any aggressive measures/invasive procedures. Goal of care were discussed with both the patient and her son. Hospice/palliative care was explained. Their questions were answered in detail. Son agrees to hospice evaluation and consult. Patient code status changed to DNR CC after discussion with son and the patient herself. Physician Time Time Spent Time Spent: More than 15 minutes spent with family (Approx 18 minutes spent on advance care planning. )
--- NOTE | 2024-01-21 17:58 | NUTR.NU ---
Diet consult and nutrition assessment completed.
[2024-01-21] MEDS: ALPRAZOLAM 0.5 MG TABLET PO (22:14)
[2024-01-21] MEDS: METOPROLOL TARTRATE 100 MG TABLET PO (22:14)
[2024-01-22] VITALS (9 sets, daily range): BP systolic 80–128; BP diastolic 48–65; PULSE 60–90; TEMP 36.2–36.6; O2SAT 90–95
[2024-01-22 06:04] LABS: Basophils Absolute Auto 0.1 10^3/uL (0.0-0.1); Basophils Percent Auto 0.5 % (0.2-2.0); Hematocrit 47.4 % (36.0-48.0); Hemoglobin 15.7 g/dL (12.0-16.0); Immature Granulocytes Abs Auto 0.18 10^3/uL (0.00-0.03); Immature Granulocytes Pct Auto 1.5 % (0.0-0.5); Lymphocytes Absolute Auto 0.9 10^3/uL (1.2-3.8); Lymphocytes Percent Auto 7.1 % (20.5-60.0); Mean Corpuscular HGB Conc 33.1 g/dL (29.9-35.2); Mean Corpuscular Hemoglobin 31.8 pg (26.7-34.0); Monocytes Percent Auto 8.3 % (1.7-12.0); Neutrophils Absolute Auto 9.9 10^3/uL (1.4-6.5); Neutrophils Percent Auto 82.6 % (43.0-75.0); Platelet Count 329 10^3/uL (150-450); Red Blood Count 4.94 10^6/uL (4.20-5.40); Red Cell Distribution Width 15.1 % (11.0-15.0)
[2024-01-22 06:26] LABS: Alanine Aminotransferase 235 U/L (14-59); Albumin Globulin Ratio 0.5; Alkaline Phosphatase 233 U/L (46-116); Anion Gap 19.3; Aspartate Amino Transferase 175 U/L (15-37); BUN Creatinine Ratio 42.3; Bilirubin Total 0.5 mg/dL (0.2-1.0); Calcium 9.2 mg/dL (8.5-10.1); Carbon Dioxide 17.2 mmol/L (21.0-32.0); Chloride 104 mmol/L (98-107); Estimated GFR (African America >60 (>=60 mL/min/1.73m^2); Estimated GFR (Non-African Ame 51 (>=60 mL/min/1.73m^2); Globulin 4.4 g/dL; Glucose 94 mg/dL (74-106); Potassium 4.5 mmol/L (3.5-5.1); Sodium 136 mmol/L (136-145); Total Protein 6.4 g/dL (6.4-8.2)
--- NOTE | 2024-01-22 08:41 | SWNOTE1 ---
SW checked chart and [facility] did leave note. Note stated that family needs to figure out discharge plans as they thought hospice would be in the home 03/11. It also stated family refused IPU. ERNESTO called pt's son, Shade. Shade voiced that she can't go home as that is not his mom in there, she has no idea what is going on and appears confused (per son). SW did ask son if hospice spoke to him about the IPU? He stated she spoke about it but then not sure what happened after that. SW did tell him usually pt has to have symptoms out of control and SW is not sure she qualifies. Pt's son would like this option if she qualifies. SW to check back with hospice. SW explained to son that it is likely pt will be discharged today as she is stable for discharge. SW explained to pt's son that the other options are for son to take pt home or we could try alf, but she would have to apply for Medicaid. Pt's son did voice that she does not own anything and will qualify for Medicaid. He did tell SW that pt did try to live with him for a little bit. He voiced it is a 2 story home, the basement is the main entry and then there are 14 steps to go to the main floor. He voiced that she can't go up the steps and there is no bathroom in the basement. He stated she can go all the way around the house and go in the front door and not have to do the steps, but she can't walk that far either. SW advised pt's son that once pt is in the home she likely won't be getting around that much. He stated there is not much room in the house. SW advised they can put a hospital bed on the main floor and a bedside commode. Pt's son is not sure on this. ERNESTO let the son know SW to call [facility] and speak with them about the inpt unit and then we will go from there. Pt's son is interested and getting Medicaid application. He will be coming to the hospital. ERNESTO printed off Medicaid application for son. ERNESTO called [facility] and spoke to intake, ERNESTO requested that dispatch or nurse call SW so we can have pt evaluated for the inpatient unit. Waiting for call back.
--- NOTE | 2024-01-22 09:21 | SWNOTE1 ---
SW spoke to dispatch at [facility] and they are coming between 10;00-10:30 to re-assess. SW updated nurse and doctor.
--- NOTE | 2024-01-22 09:38 | CM.NOTE ---
Rounds made with Dr. Briseno, pt will discharge today. Hospice will re-evaluate pt today for possible inpatient care for hospice.
--- NOTE | 2024-01-22 10:22 | SWNOTE1 ---
ERNESTO spoke to Juliano arnold in regards to pt. She is unsure if pt qualifies for IPU, but she is going to reach out to the doctors at IPU and see what they say, then speak to the son. ERNESTO advised her to call SW when she needs SW assistance.
--- NOTE | 2024-01-22 11:24 | SWNOTE1 ---
ERNESTO called over to Radha at [facility], she was not in and SW spoke to Katya. SW explained the situation, they will review. They did ask if pt is able to be skilled? ERNESTO is not sure as pt is more hospice appropriate, but they will review and let SW know.
--- NOTE | 2024-01-22 11:25 | CM.NOTE ---
2nd Important Notice of Medicare discussed again with pt and son, no questions or concerns at this time.
--- NOTE | 2024-01-22 12:42 | SWNOTE1 ---
SW has email out to [facility] as well to see if they have any openings.
--- NOTE | 2024-01-22 13:02 | SWNOTE1 ---
ERNESTO heard back from [place], spoke to Fidelina. She voiced they can not take her at this time pending medicaid. Family would have to fill out a form and business office would have to review and then go from there. This would not happen until at least Thursday. ERNESTO requested to at least send referral over for them to review medically and then if pt returns home, family can call and follow up. Fidelina in agreement.
--- NOTE | 2024-01-22 13:07 | SWNOTE1 ---
SW reached out to [facility], waiting for call back.
--- NOTE | 2024-01-22 13:53 | P.DS_ITS ---
DS: Providers Provider Date of admission: 01/20/24 09:30 Primary care physician: TODD NGO Admitting clinician: Shaikh Finn Attending physician on admission: Shaikh Finn Consults: 01/19/24 14:38 Occupational Therapy Eval and Treat Routine Reason for consultation: Ambulatory dysfunction/weakness Physical Therapy Eval and Treat Routine Reason for consultation: Ambulatory dysfunction/weakness 01/20/24 09:35 Consult to Dietitian Routine Reason for consultation: malnutrition 01/20/24 09:41 Consult to Cardiology Routine Reason for consultation: Afib with RVR, Pericardial effusion/tamponade physiology. 01/21/24 10:04 Consult to Hospice Routine Reason for consultation: Lung mass/cancer/pericardial effusion Attending physician on discharge: Shaikh Finn Discharging clinician: Shaikh Finn Anticipated date of discharge: 01/22/24 DS: Diagnosis Discharge Diagnosis (1) Atrial fibrillation with RVR: (2) Altered mental status: Qualifiers: Altered mental status type: disorientation Qualified Code(s): R41.0 - Disorientation, unspecified (3) UTI (urinary tract infection): Qualifiers: Hematuria presence: without hematuria Urinary tract infection type: acute cystitis Qualified Code(s): N30.00 - Acute cystitis without hematuria (4) Severe malnutrition: (5) Lung mass: (6) Pericardial effusion: (7) HAMMAD (acute kidney injury): DS: Summary Hospital Course Hospital Course: Patient brought over to ED by EMS for altered mental status and rapid HR. Patient was driving erratically when she was stopped over by the police. She told the police that she was just upset at her son. Upon interaction with the police, she was noted to be confused, with poor insight and was brought over to ED for further evaluation. She was found to have Afib with RVR in ED and was started on IV cardizem drip. She was initially hypotensive in ED but her BP improved subsequently as her HR improved. Trauma work up - CTH/CT neck did not reveal any sig finding/injury. She also had evidence of UTI for which she was treated with Rocephin. Patient was noted to have abnormal CXR that prompted a CT chest that revealed large pericardial effusion and suspicious lung mass. Upon review of chart, it was revealed that she had moderate sized pericardial effusion on ECHO in 08/04 and she refused to have any work up for it. Repeat ECHO showed increased pericardial effusion but no tamponade physiology. Cardiology evaluated the patient and had a detailed discussed with her regarding treatment options. Her HR improved during the course of admission and she was gradually weaned off of Cardizem. She was treated with PO lopressor and the dose was gradually increased to 100 q12 that was adequate to help control her HR. She remained in Afib and did not convert to NSR. While patient was oriented to time/place and person, she was noted to have poor insight and it was felt that she did not have capacity to make informed decision. Patient stated when asked that she did not want any procedures and that she wanted to be a DNR. Goals of cares were discussed with her son also, who is her POA. Hospice was consulted. Patient was evaluated for home hospice. She will be discharged home to her house where her son lives with her. Family will try to make arrangements for her to go to a snf once her medicaid is approved. She is medically stable for discharge to home hospice. She will need PO lopressor for Afib. She will also need PO ceftin to finish treatment course of UTI. Status at Discharge Functional status at discharge: uses cane/walker Overall status at discharge: patient is progressing back to baseline Time Spent with Patient Time attestation: Total time spent providing and/or coordinating discharge services: Time spent: greater than 30 minutes Exam Constitutional Vital Signs, click to edit/add: Last Vital Signs Temp 97.5 F L 01/22/24 11:20 Pulse 90 01/22/24 11:20 Resp 20 01/22/24 11:20 BP 107/65 01/22/24 11:20 Pulse Ox 90 L 01/22/24 11:20 O2 Del Method Room Air 01/22/24 11:55 O2 Flow Rate 3 01/21/24 04:30 Common normals: no apparent distress General appearance: comfortable, disheveled and frail appearing Nutritional appearance: cachectic HENMT Other: Bruise noted over right fronto temporal area. Respiratory Common normals: normal respiratory effort, no use of accessory muscles and clear to auscultation bilaterally Effort & inspection: able to speak in complete sentences Cardio Common normals: S1 normal heart sound and S2 normal heart sound Rate: tachycardic Rhythm: abnormal rhythm Extremity Common normals: normal to inspection and full ROM Neuro Common normals: oriented x3, moves all extremities and no focal motor deficits Speech: speech normal Gait (neuro): unable to assess gait Other: AAOX 3 Poor insight. Patient has poor understanding of her medical condition. She does not seem to have medical competency in my opinion as she was unable to communicate/grasp the basic concepts of her current illness. Psych Common normals: denies hallucinations and denies homicidal ideation Appearance: disheveled Attitude: guarded Speech: normal speech Insight: poor Judgement: poor DS: Data Data Completed and Pending Labs on day of discharge: Labs from last 24 hours 01/22/24 05:33 WBC 12.0 H RBC 4.94 Hgb 15.7 Hct 47.4 MCV 96.0 MCH 31.8 MCHC 33.1 RDW 15.1 H Plt Count 329 MPV 12.0 Neut % (Auto) 82.6 H Lymph % (Auto) 7.1 L [place] % (Auto) 8.3 Eos % (Auto) 0.0 L Baso % (Auto) 0.5 Neut # (Auto) 9.9 H Lymph # (Auto) 0.9 L [place] # (Auto) 1.0 H Eos # (Auto) 0.0 Baso # (Auto) 0.1 Abs Immat Gran (auto) 0.18 H Imm/Tot Granulo (auto) 1.5 H Sodium 136 Potassium 4.5 Chloride 104 Carbon Dioxide 17.2 L Anion Gap 19.3 BUN 44.0 H Creatinine 1.04 H Est GFR ( Amer) >60 Est GFR (Non-Af Amer) 51 L BUN/Creatinine Ratio 42.3 Glucose 94 Calcium 9.2 Total Bilirubin 0.5 AST 175 H ALT 235 H Alkaline Phosphatase 233 H Total Protein 6.4 Albumin 2.0 L Globulin 4.4 Albumin/Globulin Ratio 0.5 Preliminary micro results at discharge 01/19/24 14:07 Urine Culture - Preliminary Urine,Clean Catch Gram negative [place] Discharge Plan Discharge Disposition: Hospice - Home Condition: Fair Discharge Medications: New cefuroxime axetil 250 mg tablet 250 mg PO BID Qty: 10 0RF metoprolol tartrate [Lopressor] 100 mg tablet 100 mg PO BID Qty: 60 0RF Continued tramadol 50 mg tablet 50 mg PO QPM Activity: increase activity as tolerated Diet: advance to your usual diet Print Language: Vincentian Chilling Hood Operator/Delivery Tech Instructions: Discharge with [facility]. Forms: Portal Instructions
--- NOTE | 2024-01-22 14:14 | SWNOTE1 ---
At this time [facility] has not responded and they are still reviewing. ERNESTO messaged the doctor and at this time pt will be discharged to home under hospice services and Medicaid application will be provided to son, Wilfredo as well as number for [facility] to follow up with trying to get pt placed. ERNESTO called pt's son Wilfredo, his answered the phone. She voiced he is drunk and has been drinking all day. ERNESTO attempted to explain that pt's mother is being discharged home. She voiced she has a wedding to go to and can't get her. ERNESTO asked about the other son. She stated his name is Jass. ERNESTO asked if he cares for her at home. She stated she think she is slow and was never tested. He does not drive and unsure if he is at home. She is going to try and face book message him as he does not have a phone. ERNESTO let Georges that SW has Medicaid application for pt's son and the halfway phone numbers that ERNESTO has spoke to as well. SW to update nurse and doctor. RENESTO spoke to doctor. Unsure if pt can safely be discharged unless we know Jass is at home.
--- NOTE | 2024-01-22 14:43 | SWNOTE1 ---
ERNESTO called and spoke with Georges, daughter in law who is to [place]. She has not heard back from Jass on face book messenger. She voiced he rides his bike to the library and if he is not there then he will not see message. ERNESTO advised Georges that ERNESTO is not sure there is a safe discharge plan at this time and if pt ends up staying at hospital, then SW will have [facility] come back out and re-assess tomorrow morning. Pt's daughter in law in agreement and voiced that may be best. ERNESTO received a call from [facility] and spoke to the nurse that was here earlier today. ERNESTO updated her and she is going to reach out to the nurse on for tomorrow and request they come see pt in morning to evaluate for [facility] in[facility]. SW to update nurse and doctor.
--- NOTE | 2024-01-22 15:58 | SWNOTE1 ---
Pt will be staying as we can't confirm that pt has a safe place to discharge or someone that will be in the home to care for pt. Pt's one son is drunk at this time, daughter in law is at a wedding, and the other son that is supposed to be at the apartment living with pt is not able to be reached. SW let nurse know that if pt has a change in status, hospice can always be called and re-assessed this evening. SW let nurse know that Hospice will be in tomorrow morning to re-assess. Doctor is aware as well.
--- NOTE | 2024-01-22 16:06 | SWNOTE1 ---
SW called and left voicemail for pt's son to him know pt is staying tonight and hospice re-assessing in morning. ERNESTO advised him to call nurse with any further updates. ERNESTO also sent a message to pt's daughter in law to let her know the same.
--- NOTE | 2024-01-22 16:21 | SWNOTE1 ---
ERNESTO spoke to the nurse and after nurse assessed pt, she is having a change in condition. Pt is deep breathing but refusing oxygen. Her finger tips are cold and her fingers look blue and legs, faith/blue. She is gasping for air. She has been refusing all meals still. Her urine is dark and foul smelling and her BP is 80/48. ERNESTO called and notified [facility] to see if someone can come out this evening to re-assess pt. ERNESTO called [facility] and the platform worker will check to see who is available and call ERNESTO back on ERNESTO cell phone. ERNESTO also called Priyanka, ERNESTO's contact at [facility], and left her a message to see if someone can come [place] to re-assess. ERNESTO updated nurse and will let nurse know once ERNESTO knows if someone is coming this evening and the time.
[2024-01-23] VITALS (8 sets, daily range): BP systolic 94–123; BP diastolic 50–78; PULSE 68–102; TEMP 36.2–37.2; O2SAT 87–95
[2024-01-23 06:23] LABS: Basophils Absolute Auto 0.1 10^3/uL (0.0-0.1); Basophils Percent Auto 0.3 % (0.2-2.0); Hematocrit 41.6 % (36.0-48.0); Hemoglobin 14.2 g/dL (12.0-16.0); Immature Granulocytes Abs Auto 0.33 10^3/uL (0.00-0.03); Immature Granulocytes Pct Auto 1.9 % (0.0-0.5); Lymphocytes Absolute Auto 0.6 10^3/uL (1.2-3.8); Lymphocytes Percent Auto 3.1 % (20.5-60.0); Mean Corpuscular HGB Conc 34.1 g/dL (29.9-35.2); Mean Corpuscular Volume 93.7 fL (81.0-99.0); Monocytes Absolute Auto 1.2 10^3/uL (0.3-0.8); Neutrophils Absolute Auto 15.4 10^3/uL (1.4-6.5); Neutrophils Percent Auto 87.7 % (43.0-75.0); Platelet Count 297 10^3/uL (150-450); Red Blood Count 4.44 10^6/uL (4.20-5.40); Red Cell Distribution Width 15.4 % (11.0-15.0); White Blood Count 17.5 10^3/uL (4.0-11.0)
[2024-01-23 06:39] LABS: Albumin Level 1.8 g/dL (3.4-5.0); Alkaline Phosphatase 206 U/L (46-116); BUN Creatinine Ratio 31.4; Bilirubin Total 0.6 mg/dL (0.2-1.0); Calcium 8.3 mg/dL (8.5-10.1); Carbon Dioxide 9.9 mmol/L (21.0-32.0); Chloride 105 mmol/L (98-107); Estimated GFR (African America 23 (>=60 mL/min/1.73m^2); Estimated GFR (Non-African Ame 19 (>=60 mL/min/1.73m^2); Glucose 115 mg/dL (74-106); Potassium 4.9 mmol/L (3.5-5.1); Sodium 139 mmol/L (136-145); Total Protein 5.8 g/dL (6.4-8.2)
[2024-01-23 06:47] LABS: Albumin Globulin Ratio 0.5
[2024-01-23 06:52] LABS: Alanine Aminotransferase 637 U/L (14-59); Aspartate Amino Transferase 691 U/L (15-37)
--- NOTE | 2024-01-23 08:47 | PC.NURSE ---
[facility] called and left message on their voicemail that knot picker cloth at [phone] to please call back regarding reassessment of patient for their services.
--- NOTE | 2024-01-23 09:32 | P.DS_ITS ---
DS: Providers Provider Date of admission: 01/20/24 09:30 Primary care physician: TODD NGO Consults: 01/19/24 14:38 Occupational Therapy Eval and Treat Routine Reason for consultation: Ambulatory dysfunction/weakness Physical Therapy Eval and Treat Routine Reason for consultation: Ambulatory dysfunction/weakness 01/20/24 09:35 Consult to Dietitian Routine Reason for consultation: malnutrition 01/20/24 09:41 Consult to Cardiology Routine Reason for consultation: Afib with RVR, Pericardial effusion/tamponade physiology. 01/21/24 10:04 Consult to Hospice Routine Reason for consultation: Lung mass/cancer/pericardial effusion DS: Diagnosis Discharge Diagnosis (1) Atrial fibrillation with RVR: Assessment and plan: Rate controlled currently, blood pressure low (2) Altered mental status: Assessment and plan: Unchanged from previous day Qualifiers: Altered mental status type: disorientation Qualified Code(s): R41.0 - Disorientation, unspecified (3) UTI (urinary tract infection): Assessment and plan: Culture pending Qualifiers: Hematuria presence: without hematuria Urinary tract infection type: acute cystitis Qualified Code(s): N30.00 - Acute cystitis without hematuria (4) Severe malnutrition: Assessment and plan: Try to supplement when able (5) Lung mass: (6) Pericardial effusion: Assessment and plan: Likely deterioration with change in mental status and overall condition deteriorating (7) HAMMAD (acute kidney injury): Assessment and plan: Progressed to acute renal failure with creatinine 350% above baseline baseline creatinine of 0.7 creatinine now 2.45 (8) Leukocytosis: Assessment and plan: Deteriorated with patient's condition deteriorating (9) Acute liver failure: Assessment and plan: Significant deterioration overnight, patient terminal (10) Acute renal failure: Assessment and plan: Acute kidney injury progressed to acute renal failure as outlined above (11) Abnormal chest xray: Plan Transfer patient to hospice either at home or inpatient plan to be discussed later today DS: Summary Hospital Course Hospital Course: Patient brought over to ED by EMS for altered mental status and rapid HR. Patient was driving erratically when she was stopped over by the police. She told the police that she was just upset at her son. Upon interaction with the police, she was noted to be confused, with poor insight and was brought over to ED for further evaluation. She was found to have Afib with RVR in ED and was started on IV cardizem ip. She was initially hypotensive in ED but her BP improved subsequently as her HR improved. Trauma work up - CTH/CT neck did not reveal any sig finding/injury. She also had evidence of UTI for which she was treated with Rocephin. Patient was noted to have abnormal CXR that prompted a CT chest that revealed large pericardial effusion and suspicious lung mass. Upon review of chart, it was revealed that she had moderate sized pericardial effusion on ECHO in 08/04 and she refused to have any work up for it. Repeat ECHO showed increased pericardial effusion but no tamponade physiology. Cardiology evaluated the patient and had a detailed discussed with her regarding treatment options. Her HR improved during the course of admission and she was gradually weaned off of Cardizem. She was treated with PO lopressor and the dose was gradually increased to 100 q12 that was adequate to help control her HR. She remained in Afib and did not convert to NSR. While patient was oriented to time/place and person, she was noted to have poor insight and it was felt that she did not have capacity to make informed decision. Patient stated when asked that she did not want any procedures and that she wanted to be a DNR. Goals of cares were discussed with her son also, who is her POA. Hospice was consulted. Patient was evaluated for home hospice. She will be discharged home to her house where her son lives with her. Family will try to make arrangements for her to go to a residential once her medicaid is approved. She is medically stable for discharge to home hospice. She will need PO lopressor for Afib. She will also need PO ceftin to finish treatment course of UTI. Note from above is from the previous day when patient was to be discharged I saw patient today, very obtunded, uncertain if that is her baseline but overall condition is much worse, with severe hypotension liver failure renal failure. Plan for hospice either inpatient hospice or home with hospice [facility] already expect Status at Discharge Overall status at discharge: patient is not back to baseline Time Spent with Patient Time attestation: Total time spent providing and/or coordinating discharge services: Time spent: greater than 30 minutes Exam Constitutional Vital Signs, click to edit/add: Last Vital Signs Temp 98 F 01/23/24 06:15 Pulse 92 H 01/23/24 06:15 Resp 20 01/23/24 06:15 BP 123/68 01/23/24 06:15 Pulse Ox 87 L 01/23/24 06:15 O2 Del Method Room Air 01/23/24 06:15 O2 Flow Rate 3 01/21/24 04:30 Documenting provider has reviewed patient's vital signs: yes Common normals: apparent distress (Sedated) Chest Common normals: inspection of chest normal Respiratory Common normals: normal respiratory effort and no retractions Cardio Common normals: regular rate and regular rhythm DS: Data Data Completed and Pending Labs on day of discharge: Labs from last 24 hours 01/23/24 05:50 WBC 17.5 H RBC 4.44 Hgb 14.2 Hct 41.6 MCV 93.7 MCH 32.0 MCHC 34.1 RDW 15.4 H Plt Count 297 MPV 12.0 Neut % (Auto) 87.7 H Lymph % (Auto) 3.1 L [place] % (Auto) 7.0 Eos % (Auto) 0.0 L Baso % (Auto) 0.3 Neut # (Auto) 15.4 H Lymph # (Auto) 0.6 L [place] # (Auto) 1.2 H Eos # (Auto) 0.0 Baso # (Auto) 0.1 Abs Immat Gran (auto) 0.33 H Imm/Tot Granulo (auto) 1.9 H Sodium 139 Potassium 4.9 Chloride 105 Carbon Dioxide 9.9 L Anion Gap 29.0 BUN 77.0 H* Creatinine 2.45 H Est GFR ( Amer) 23 L Est GFR (Non-Af Amer) 19 L BUN/Creatinine Ratio 31.4 Glucose 115 H Calcium 8.3 L Total Bilirubin 0.6 AST 691 H* ALT 637 H* Alkaline Phosphatase 206 H Total Protein 5.8 L Albumin 1.8 L Globulin 4.0 Albumin/Globulin Ratio 0.5 Preliminary micro results at discharge 01/19/24 14:07 Urine Culture - Preliminary Urine,Clean Catch Gram negative [place] Discharge Plan Discharge Disposition: Hospice - Home Condition: Fair Discharge Medications: New cefuroxime axetil 250 mg tablet 250 mg PO BID Qty: 10 0RF metoprolol tartrate [Lopressor] 100 mg tablet 100 mg PO BID Qty: 60 0RF Continued tramadol 50 mg tablet 50 mg PO QPM Activity: increase activity as tolerated Diet: advance to your usual diet Print Language: [place] Islander Director Of Accounts Payable/Combination Saw Operator Instructions: Discharge with [facility]. Forms: Portal Instructions
--- NOTE | 2024-01-23 10:30 | PC.NURSE ---
Hospice staff [place] to say time for meeting with son at [facility] was 6:30 pm. Electrical Sign Servicer aware.
--- NOTE | 2024-01-23 13:13 | PC.NURSE ---
Hospice nurse here with pt and son Wilfredo in room
[2024-01-23] MEDS: MORPHINE SULFATE 20 MG/ML ORAL CONCENTRATE SOLUTION 5 MG PO ×3 (13:44→21:50)
[2024-01-24] MEDS: MORPHINE SULFATE 20 MG/ML ORAL CONCENTRATE SOLUTION 5 MG PO ×4 (02:05→22:47)
[2024-01-24 06:00] VITALS: BP 138/69; PULSE 56; TEMP 36.3; O2SAT 89
[2024-01-24 06:10] LABS: Basophils Absolute Auto 0.1 10^3/uL (0.0-0.1); Basophils Percent Auto 0.3 % (0.2-2.0); Hematocrit 45.2 % (36.0-48.0); Immature Granulocytes Abs Auto 0.31 10^3/uL (0.00-0.03); Immature Granulocytes Pct Auto 1.5 % (0.0-0.5); Lymphocytes Absolute Auto 0.3 10^3/uL (1.2-3.8); Lymphocytes Percent Auto 1.7 % (20.5-60.0); Mean Corpuscular HGB Conc 33.2 g/dL (29.9-35.2); Mean Corpuscular Hemoglobin 31.9 pg (26.7-34.0); Mean Corpuscular Volume 96.2 fL (81.0-99.0); Mean Platelet Volume 11.7 fL (9.5-13.5); Monocytes Absolute Auto 1.4 10^3/uL (0.3-0.8); Monocytes Percent Auto 6.9 % (1.7-12.0); Neutrophils Absolute Auto 18.3 10^3/uL (1.4-6.5); Neutrophils Percent Auto 89.6 % (43.0-75.0); Platelet Count 245 10^3/uL (150-450); Red Cell Distribution Width 16.4 % (11.0-15.0); White Blood Count 20.5 10^3/uL (4.0-11.0)
[2024-01-24 06:28] LABS: Albumin Globulin Ratio 0.5; Albumin Level 1.9 g/dL (3.4-5.0); Alkaline Phosphatase 200 U/L (46-116); Anion Gap 25.7; Aspartate Amino Transferase 297 U/L (15-37); BUN Creatinine Ratio 36.8; Bilirubin Total 0.5 mg/dL (0.2-1.0); Calcium 8.5 mg/dL (8.5-10.1); Carbon Dioxide 13.2 mmol/L (21.0-32.0); Chloride 107 mmol/L (98-107); Estimated GFR (African America 19 (>=60 mL/min/1.73m^2); Estimated GFR (Non-African Ame 16 (>=60 mL/min/1.73m^2); Globulin 4.1 g/dL; Glucose 129 mg/dL (74-106); Potassium 4.9 mmol/L (3.5-5.1); Sodium 141 mmol/L (136-145)
[2024-01-24 06:45] LABS: Alanine Aminotransferase 615 U/L (14-59)
--- NOTE | 2024-01-24 09:33 | P.DS_ITS ---
DS: Providers Provider Date of admission: 01/20/24 09:30 Primary care physician: TODD NGO Consults: 01/19/24 14:38 Occupational Therapy Eval and Treat Routine Reason for consultation: Ambulatory dysfunction/weakness Physical Therapy Eval and Treat Routine Reason for consultation: Ambulatory dysfunction/weakness 01/20/24 09:35 Consult to Dietitian Routine Reason for consultation: malnutrition 01/20/24 09:41 Consult to Cardiology Routine Reason for consultation: Afib with RVR, Pericardial effusion/tamponade physiology. 01/21/24 10:04 Consult to Hospice Routine Reason for consultation: Lung mass/cancer/pericardial effusion DS: Diagnosis Discharge Diagnosis (1) Atrial fibrillation with RVR: (2) Altered mental status: Qualifiers: Altered mental status type: disorientation Qualified Code(s): R41.0 - Disorientation, unspecified (3) UTI (urinary tract infection): Qualifiers: Hematuria presence: without hematuria Urinary tract infection type: acute cystitis Qualified Code(s): N30.00 - Acute cystitis without hematuria (4) Severe malnutrition: (5) Lung mass: (6) Pericardial effusion: (7) HAMMAD (acute kidney injury): (8) Leukocytosis: (9) Acute liver failure: (10) Acute renal failure: (11) Abnormal chest xray: DS: Summary Hospital Course Hospital Course: Patient brought over to ED by EMS for altered mental status and rapid HR. Patient was driving erratically when she was stopped over by the police. She told the police that she was just upset at her son. Upon interaction with the police, she was noted to be confused, with poor insight and was brought over to ED for further evaluation. She was found to have Afib with RVR in ED and was started on IV cardizem drip. She was initially hypotensive in ED but her BP improved subsequently as her HR improved. Trauma work up - CTH/CT neck did not reveal any sig finding/injury. She also had evidence of UTI for which she was treated with Rocephin. Patient was noted to have abnormal CXR that prompted a CT chest that revealed large pericardial effusion and suspicious lung mass. Upon review of chart, it was revealed that she had moderate sized pericardial effusion on ECHO in 08/04 and she refused to have any work up for it. Repeat ECHO showed increased pericardial effusion but no tamponade physiology. Cardiology evaluated the patient and had a detailed discussed with her regarding treatment options. Her HR improved during the course of admission and she was gradually weaned off of Cardizem. She was treated with PO lopressor and the dose was gradually increased to 100 q12 that was adequate to help control her HR. She remained in Afib and did not convert to NSR. While patient was oriented to time/place and person, she was noted to have poor insight and it was felt that she did not have capacity to make informed decision. Patient stated when asked that she did not want any procedures and that she wanted to be a DNR. Goals of cares were discussed with her son also, who is her POA. Hospice was consulted. Patient was evaluated for home hospice. She will be discharged home to her house where her son lives with her. Family will try to make arrangements for her to go to a [facility] once her medicaid is approved. She is medically stable for discharge to home hospice. She will need PO lopressor for Afib. She will also need PO ceftin to finish treatment course of UTI. Note from above is from the previous days when patient was to be discharged I saw patient today, moderate respiratory distress requiring morphine. Reviewed case with hospice for possible inpatient hospice care today Time Spent with Patient Time attestation: Total time spent providing and/or coordinating discharge services: Exam Constitutional Vital Signs, click to edit/add: Last Vital Signs Temp 97.3 F L 01/24/24 06:00 Pulse 56 L 01/24/24 06:00 Resp 24 H 01/24/24 06:00 BP 138/69 01/24/24 06:00 Pulse Ox 89 L 01/24/24 06:00 O2 Del Method Nasal Cannula 01/24/24 06:00 O2 Flow Rate 3 01/24/24 06:00 Documenting provider has reviewed patient's vital signs: yes Common normals: apparent distress (Sedated, tachypneic) Chest Common normals: inspection of chest normal Respiratory Common normals: normal respiratory effort and no retractions Cardio Common normals: regular rate and regular rhythm DS: Data Data Completed and Pending Labs on day of discharge: Labs from last 24 hours 01/24/24 05:26 WBC 20.5 H RBC 4.70 Hgb 15.0 Hct 45.2 MCV 96.2 MCH 31.9 MCHC 33.2 RDW 16.4 H Plt Count 245 MPV 11.7 Neut % (Auto) 89.6 H Lymph % (Auto) 1.7 L [place] % (Auto) 6.9 Eos % (Auto) 0.0 L Baso % (Auto) 0.3 Neut # (Auto) 18.3 H Lymph # (Auto) 0.3 L [place] # (Auto) 1.4 H Eos # (Auto) 0.0 Baso # (Auto) 0.1 Abs Immat Gran (auto) 0.31 H Imm/Tot Granulo (auto) 1.5 H Sodium 141 Potassium 4.9 Chloride 107 Carbon Dioxide 13.2 L Anion Gap 25.7 BUN 107.0 H* Creatinine 2.91 H Est GFR ( Amer) 19 L Est GFR (Non-Af Amer) 16 L BUN/Creatinine Ratio 36.8 Glucose 129 H Calcium 8.5 Total Bilirubin 0.5 AST 297 H ALT 615 H* Alkaline Phosphatase 200 H Total Protein 6.0 L Albumin 1.9 L Globulin 4.1 Albumin/Globulin Ratio 0.5 Discharge Plan Discharge Disposition: Hospice - Home Condition: Fair Discharge Medications: New cefuroxime axetil 250 mg tablet 250 mg PO BID Qty: 10 0RF metoprolol tartrate [Lopressor] 100 mg tablet 100 mg PO BID Qty: 60 0RF Continued tramadol 50 mg tablet 50 mg PO QPM Activity: increase activity as tolerated Diet: advance to your usual diet Print Language: Lao Workers' Compensation Commissioner/Electric Screw Driver Operator Instructions: Discharge with [facility]. Forms: Portal Instructions
[2024-01-24 11:10] VITALS: O2SAT 90
--- NOTE | 2024-01-24 12:26 | PC.NURSE ---
[facility] answering service called re: reassessment of pt..they state someone will be out at some point today. She is on our list to be re evaluated
[2024-01-24 13:52] VITALS: BP 132/80; PULSE 69; TEMP 36.4; O2SAT 87
--- NOTE | 2024-01-24 15:14 | PC.NURSE ---
shoddy mill worker Huong calls to check on status of patient. Informed that Hospice dispatch was called around 12:30 to request time of re-evaluation. Was told yesterday by Gail from Hospice that she would be back in the morning to see pt. No one here yet from [facility]. Huong states she will also check with dispatch on a prospective time for re-eval.
--- NOTE | 2024-01-24 17:13 | PC.NURSE ---
[facility] dispatch notified again to inquire about reassessment of patient for today. Staff member states that Gail is definitely scheduled to follow up with the patient today. Its on our board that I refer to.
--- NOTE | 2024-01-24 17:32 | PC.NURSE ---
Gail from Hospice returns call. States she is still trying to assess the patient's needs etc and will call back with an update.
--- NOTE | 2024-01-24 18:29 | PC.NURSE ---
Hospice nurse Yolanda calls back regarding services. Will have to talk more in the morniing with family. [facility] coating line worker Leonardo asks for hospice to call her once she called back steve. Phone number given to yolanda to speak directly to leonardo.
[2024-01-24 19:52] VITALS: O2SAT 90
[2024-01-24 22:00] VITALS: BP 119/76; PULSE 75; TEMP 36.5; O2SAT 88
[2024-01-25] MEDS: MORPHINE SULFATE 20 MG/ML ORAL CONCENTRATE SOLUTION 5 MG PO ×4 (03:34→16:24)
[2024-01-25 04:43] VITALS: O2SAT 90
[2024-01-25 04:47] VITALS: BP 117/76; PULSE 89; TEMP 36.4; O2SAT 93
--- NOTE | 2024-01-25 09:14 | PM.DS1 ---
DS: Providers Provider Date of admission: 01/20/24 09:30 Primary care physician: TODD [facility] Consults: 01/19/24 14:38 Occupational Therapy Eval and Treat Routine Reason for consultation: Ambulatory dysfunction/weakness Physical Therapy Eval and Treat Routine Reason for consultation: Ambulatory dysfunction/weakness 01/20/24 09:35 Consult to Dietitian Routine Reason for consultation: malnutrition 01/20/24 09:41 Consult to Cardiology Routine Reason for consultation: Afib with RVR, Pericardial effusion/tamponade physiology. 01/21/24 10:04 Consult to Hospice Routine Reason for consultation: Lung mass/cancer/pericardial effusion DS: Diagnosis Discharge Diagnosis (1) Atrial fibrillation with RVR: (2) Altered mental status: Qualifiers: Altered mental status type: disorientation Qualified Code(s): R41.0 - Disorientation, unspecified (3) UTI (urinary tract infection): Qualifiers: Hematuria presence: without hematuria Urinary tract infection type: acute cystitis Qualified Code(s): N30.00 - Acute cystitis without hematuria (4) Severe malnutrition: (5) Lung mass: (6) Pericardial effusion: (7) HAMMAD (acute kidney injury): (8) Leukocytosis: (9) Acute liver failure: (10) Acute renal failure: (11) Abnormal chest xray: DS: Summary Hospital Course Hospital Course: Patient brought over to ED by EMS for altered mental status and rapid HR. Patient was driving erratically when she was stopped over by the police. She told the police that she was just upset at her son. Upon interaction with the police, she was noted to be confused, with poor insight and was brought over to ED for further evaluation. She was found to have Afib with RVR in ED and was started on IV cardizem drip. She was initially hypotensive in ED but her BP improved subsequently as her HR improved. Trauma work up - CTH/CT neck did not reveal any sig finding/injury. She also had evidence of UTI for which she was treated with Rocephin. Patient was noted to have abnormal CXR that prompted a CT chest that revealed large pericardial effusion and suspicious lung mass. Upon review of chart, it was revealed that she had moderate sized pericardial effusion on ECHO in 08/04 and she refused to have any work up for it. Repeat ECHO showed increased pericardial effusion but no tamponade physiology. Cardiology evaluated the patient and had a detailed discussed with her regarding treatment options. Her HR improved during the course of admission and she was gradually weaned off of Cardizem. She was treated with PO lopressor and the dose was gradually increased to 100 q12 that was adequate to help control her HR. She remained in Afib and did not convert to NSR. While patient was oriented to time/place and person, she was noted to have poor insight and it was felt that she did not have capacity to make informed decision. Patient stated when asked that she did not want any procedures and that she wanted to be a DNR. Goals of cares were discussed with her son also, who is her POA. Hospice was consulted. Patient was evaluated for home hospice. She will be discharged home to her house where her son lives with her. Family will try to make arrangements for her to go to a [facility] once her medicaid is approved. She is medically stable for discharge to home hospice. She will need PO lopressor for Afib. She will also need PO ceftin to finish treatment course of UTI. Note from above is from the previous days when patient was to be discharged I saw patient today, moderate respiratory distress requiring morphine. Reviewed case with hospice for possible inpatient hospice care today But still saying they could not benefit her care by being inpatient despite the fact that she has been receiving recurrent doses of morphine secondary to respiratory distress. Still working on placement today. See hospital course as outlined above. Condition terminal. Time Spent with Patient Time attestation: Total time spent providing and/or coordinating discharge services: Exam Constitutional Vital Signs, click to edit/add: Last Vital Signs Temp 97.5 F L 01/25/24 04:47 Pulse 89 01/25/24 04:47 Resp 14 01/24/24 22:00 BP 117/76 01/25/24 04:47 Pulse Ox 93 L 01/25/24 04:47 O2 Del Method Nasal Cannula 01/25/24 04:47 O2 Flow Rate 2 01/25/24 04:47 Documenting provider has reviewed patient's vital signs: yes Common normals: apparent distress (Sedated, tachypneic) Chest Common normals: inspection of chest normal Respiratory Common normals: normal respiratory effort and no retractions Cardio Common normals: regular rate and regular rhythm Discharge Plan Discharge Disposition: Hospice - Home Condition: Fair Discharge Medications: New cefuroxime axetil 250 mg tablet 250 mg PO BID Qty: 10 0RF metoprolol tartrate [Lopressor] 100 mg tablet 100 mg PO BID Qty: 60 0RF Continued tramadol 50 mg tablet 50 mg PO QPM Activity: increase activity as tolerated Diet: advance to your usual diet Print Language: Japanese [employer] Slitting Machine Operator/Housekeeper Head Instructions: Discharge with [facility]. Forms: Portal Instructions
--- NOTE | 2024-01-25 09:22 | CM.NOTE ---
Rounds made with Dr. Philip, pt will discharge to home today. SW working on contacting family to decide discharge planning.
--- NOTE | 2024-01-25 11:37 | SWNOTE1 ---
ERNESTO received a call from [facility] and they would like SW to send over MAR. She then asked about IPU and talking to the son. ERNESTO explained that son just left and ERNESTO advised her to explain to the son that we are not ruling out the mcc or IPU and to explain we are trying to keep all options open. She then asked about POA. ERNESTO explained there is no POA paperwork and the other son has no cell phone and per the son Shade he is a little slow . ERNESTO did ask if a nurse can come out and re-eval. ERNESTO then received a call from Fidelina at [facility] and she said they can take her if the son can pay up front for 18 days, $3,950 and then she would be Medicaid pending on 02/12/24. She also sent a list of things pt's son will have to complete within the 18 days. ERNESTO called son Shade and explained this to him. He voiced that would be all her money. ERNESTO explained to him that no matter what he would have to spend her money down for her to qualify for Medicaid. ERNESTO then asked if he could write checks from her account. He did not really answer and just said he would have to get her check book. ERNESTO then advised Shade that ERNESTO will have Fidelina call him. ERNESTO did tell son that either way pt is discharged today, whether it is home or to a facility. He voiced understanding.
--- NOTE | 2024-01-25 12:58 | SWNOTE1 ---
Medicaid application was submitted to [facility]. ERNESTO went back and forth with Fidelina and pt's son, Shade. He finally spoke with Fidelina and voiced he was tired and going to sleep and does not know where check book is and how much she has left in checking. At this point [facility] can't take pt without a check for those 18 days. Pt's son will need to have $3,950 up front to pay for 18 days then she will be Medicaid pending on February 11. ERNESTO called and left pt's son a message. ERNESTO then received a call from Brandi at [facility] and she is the nurse that is assisting in coordinating things. She voiced she has been accepted to the inpatient unit and she spoke to the son. She stated the son went to sleep for a bit and all she needs to know is what home they want to use in case anything happens. ERNESTO asked if she will be discharged today? Brandi stated yes, once she gets a phone call back she will set up transport. ERNESTO asked if the doctor at inpt unit is aware and has accepted. She again voiced yes she is the nurse coordinating and assessing. SW to wait for phone call. ERNESTO let pt's nurse know and sent Dr. Philip a message. ERNESTO to send dc med rec to [facility]. ERNESTO also let Fidelina at [facility] know. ERNESTO then called pt's son Shade and left him a message to call Henao back.
[2024-01-25 13:37] VITALS: BP 102/68; PULSE 84; TEMP 36.4; O2SAT 93
--- NOTE | 2024-01-25 15:15 | SWNOTE1 ---
ERNESTO received call from Brandi at [facility] and they set up transport for 4:30pm with [facility] for patient to go to the inpatient unit. ERNESTO notified nursing. ERNESTO completed [facility] transport form. ERNESTO called the son Shade and let him know that ERNESTO has paperwork for him in regards to [employer] and also the original Medicaid application. He voiced he will pick them up.
[2024-01-25 15:30] VITALS: O2SAT 93
== END 2024-01-25 16:56 | disposition hospice, inpatient (51) | DRG 308 ==
LOC: ER 13:00 → ICU 17:46 → MS 01-21 14:45
PROVIDERS: Internal Medicine; Admitting Provider Family Medicine; Emergency Provider Student in an Organized Health Care Education/Training Program; PCP Family Medicine; Visit Provider Family Medicine
DX: I48.91 Unspecified atrial fibrillation (principal); E43 Unspecified severe protein-calorie malnutrition; K72.00 Acute and subacute hepatic failure without coma; Z68.1 Body mass index [BMI] 19.9 or less, adult; N17.9 Acute kidney failure, unspecified; I31.39 Other pericardial effusion (noninflammatory); R64 Cachexia; N30.00 Acute cystitis without hematuria; R06.03 Acute respiratory distress; Z66 Do not resuscitate; R41.0 Disorientation, unspecified; F17.200 Nicotine dependence, unspecified, uncomplicated; R91.8 Other nonspecific abnormal finding of lung field; B96.20 Unspecified Escherichia coli [E. coli] as the cause of diseases classified elsewhere
CPT/HCPCS: 36415; 70450; 71045; 71250; 72125; 80053; 80307; 80320; 81001; 83735; 84443; 84484; 85007; 85025; 85027; 85610; 85730; 87086; 87150; 87186; 93005; 93306; 94761; 96361; 96365; 96366; 96368; 96376; 97162; 97165; 97530; 97535; 99285; G0378; J0696; J1160; J1650